=== PATIENT | male | born 1975 | race Caucasian/White ===

== ENCOUNTER → 2020-09-15 | Outpatient (REF) ==
[~2020-09-15] MED LIST: LRT10T PO; NF-ESOM40C PO
--- NOTE | 2020-09-15 14:52 | Diagnostic Imaging Report ---
CLINICAL INDICATION: Patient states he fell at work and now having decreased range of motion, swelling and pain in 3rd through 5th fingers. 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 Patient does not know of any foreign bodies on the hand. EXAM: X-ray of the left hand, 3 views. COMPARISON: None. FINDINGS: There are 2 roughly 1 to 2 mm focal areas of radiodensity just to the plantar aspect of the 1st distal phalanx and volar aspect near the 2nd metatarsal head superficially. There is no soft tissue air is seen. There is no acute fracture or dislocation. There are degenerative spurs involving the 1st IP joint. There are degenerative spurs involving the distal radioulnar joint. There is no other significant abnormality. IMPRESSION: 1: There is no acute fracture or dislocation. 2: There are 2 focal radiodense foreign objects overlying the plantar aspects of the 1st distal phalanx and 2nd metacarpal carpal region. 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 Dictated by: Dictated on workstation # [id number]
== END ==
LOC: OCC 14:17
PROVIDERS: ATTEND Nurse Practitioner Family
DX: M19.042 Primary osteoarthritis, left hand (principal); W19.XXXA Unspecified fall, initial encounter
CPT/HCPCS: 73130